=== PATIENT | female | born 1980 ===

== ENCOUNTER 2018-06-13 18:22 | Emergency (ER) | payer OTHER ==
[2018-06-13 18:31] VITALS: BP 156/93; PULSE 89; RESP 16; TEMP 97.7; O2SAT 97
[2018-06-13] MEDS ORDERED: Lidocaine 5% Patch TD STA (19:12)
--- NOTE | 2018-06-13 19:25 | C.PDOC ---
History Of Present Illness 38 year old female presents to the ED complaining of left sided lower back pain that radiates down to her left leg for 2 days ago. Admits to lifting heavy object at work. Denies any weakness, numbness, sensory changes, or urinary symptoms. Time Seen by Provider: 06/13/18 19:04 Chief Complaint (Nursing): Back Pain History Per: Patient History/Exam Limitations: no limitations Onset/Duration Of Symptoms: Days (2) Current Symptoms Are (Timing): Still Present Quality Of Discomfort: "Pain" Previous Symptoms: None Associated Symptoms: None Past Medical History Reviewed: Historical Data, Nursing Documentation, Vital Signs Vital Signs: Last Vital Signs Temp 97.7 F 06/13/18 18:31 Pulse 89 06/13/18 18:31 Resp 16 06/13/18 18:31 BP 156/93 H 06/13/18 18:31 Pulse Ox 97 06/13/18 18:31 - Medical History PMH: No Chronic Diseases Denies: Diabetes, HTN, Hyperlipidemia Surgical History: Cholecystectomy Family History: States: No Known Family Hx - Social History Hx Alcohol Use: No Hx Substance Use: No Review Of Systems Gastrointestinal: Negative for: Nausea, Vomiting, Abdominal Pain, Diarrhea Genitourinary: Negative for: Dysuria, Hematuria Musculoskeletal: Positive for: Back Pain (left sided lower back pain ), Leg Pain (left ) Neurological: Negative for: Weakness, Numbness Physical Exam - Physical Exam Appears: Non-toxic, No Acute Distress, Other (obese ) Skin: Warm, Dry, No Rash, Other (acanthosis nigricans) Head: Normacephalic Neck: Supple Chest: Symmetrical Cardiovascular: Rhythm Regular Respiratory: Normal Breath Sounds, No Rales, No Rhonchi, No Wheezing Back: No CVA Tenderness, Other (Left sided paralumbar tenderness ) Extremity: Bilateral: Atraumatic, Normal Color And Temperature, Normal ROM Neurological/Psych: Oriented x3, Normal Speech, Normal Motor, Normal Sensation, Normal Reflexes Gait: Steady ED Course And Treatment O2 Sat by Pulse Oximetry: 97 (RA) Pulse Ox Interpretation: Normal Medical Decision Making Medical Decision Making: Impression: low back pain Plan: * Toradol IM * Valium * Lidoderm patch Progress 2019 patient re-evaluated and still continues to have pain, states it is unchanged. Order Morphine IM 2119 patient re-evaluated and she now reports feeling relief and better. She is able to sit and stand and walk around without pain or difficulty. Plan is to discharge home with Rx and follow up with clinic. Disposition Counseled Patient/Family Regarding: Need For Followup, Rx Given - Disposition Referrals: [facility] [Outside] [facility] [Outside] Disposition: HOME/ ROUTINE Disposition Time: 21:25 Condition: IMPROVED Additional Instructions: Apply heat to area 15 minutes three times a day. Take Motrin as needed for pain every 6 hours, with food to not upset stomach. Take Flexeril for muscle pain and spasm, caution can cause drowsiness. Follow up with orthopedic if pain persists over one week. Aplicar calor al miguel angel 15 minutos vivian veces al da. [place] Motrin segn sea necesario para el dolor cada 6 horas, con alimentos para no alterar el estmago. [place] Flexeril para el dolor muscular y el espasmo, la precaucin puede causar somnolencia. Contine con la ortopedia si el dolor persiste mitchell evelina semana. Prescriptions: Acetaminophen [Acetaminophen ER] 650 mg PO Q8 #30 tablet.er Cyclobenzaprine [Cyclobenzaprine HCl] 10 mg PO TID #30 tab Ibuprofen [Motrin] 600 mg PO Q8 #30 tab traMADol [Ultram] 50 mg PO Q8 PRN #15 tab PRN Reason: Pain, Severe (8-10) Instructions: Sciatica (DC) Forms: [employer] (Icelandic) Print Language: QATARI - POA Present On Arrival: None - Clinical Impression Clinical Impression: Sciatica, Low back pain - PA / [employer] / Resident Statement MD/DO has reviewed & agrees with the documentation as recorded. - Scribe Statement The provider has reviewed the documentation as recorded by the Scribe Telma Gill All medical record entries made by the Scribe were at my direction and personally dictated by me. I have reviewed the chart and agree that the record accurately reflects my personal performance of the history, physical exam, medical decision making, and the department course for this patient. I have also personally directed, reviewed, and agree with the discharge instructions and disposition.
[2018-06-13] MEDS ORDERED: Lidocaine 5% Patch TD ONE (19:32)
[2018-06-13] MEDS ORDERED: Morphine 4 MG/ML VIAL ONE (20:30)
== END 2018-06-13 21:41 | disposition home or self-care (01) ==
LOC: C.ER 18:22
DX: M54.40 Lumbago with sciatica, unspecified side (principal)
CPT/HCPCS: 96372; 99284; J1885; J2270